=== PATIENT | female | born 1975 | race Caucasian/White ===

== ENCOUNTER 2022-09-06 01:00 | Outpatient (CLI) | payer MEDICARE, SELFPAY ==
--- NOTE | 2022-10-16 08:45 | MR_ITS ---
WS: [id number] MRI BRAIN WITH AND WITHOUT CONTRAST HISTORY: R53.1 - Weakness COMPARISON: None available. TECHNIQUE: Multiplanar imaging performed through the brain with MultiHance 20 ml's IV. No acute infarcts are seen. Burroughs-white matter differentiation is well preserved. Single round white m atter lesion in the RIGHT supraventricular white matter which may abut the corpus callosum. There is a central focus of hemosiderin. This lesion does not enhance. No cerebellar signal abnormality. No susceptibility artifacts or prior lacunar infarcts. Ventricles and extra-axial spaces are normal. Clivus and pituitary gland are normal. Visualized posterior fossa and brainstem are also normal. Postcontrast images are negative for masses or vascular malformations. Dural venous sinuses are normal. Paranasal sinuses: Well aerated with no significant disease. Mastoid air cells: Normal. Calvarium and scalp: No skull lesion. There is a scalp lesion which is mildly lobulated measuring 18 mm with mild enhancement. Probably representing a small epidermoid or sebaceous cyst.
[2022-10-16] MEDS: gadobenate dimeglumine 20 mL vial IV (09:37)
== END 2022-09-06 23:00 | disposition home or self-care (01) ==
LOC: RAD 09-24 20:20
PROVIDERS: Visit Provider Nurse Practitioner
DX: R53.1 Weakness (principal); R26.89 Other abnormalities of gait and mobility
CPT/HCPCS: 36415; 82550; 82607; 82746; 84443; 86334; 99204

== ENCOUNTER → 2022-09-06 10:01 | Outpatient (BNVA) | payer MEDICARE, SELFPAY | PROVIDERS: Visit Provider Nurse Practitioner | DX: R53.1 Weakness (principal); R26.89 Other abnormalities of gait and mobility; R20.2 Paresthesia of skin | CPT/HCPCS: 99204 ==

== ENCOUNTER 2022-10-16 08:50 | Outpatient (CLI) | payer MEDICARE, SELFPAY ==
--- NOTE | 2022-10-16 07:30 | MR_ITS ---
WS: [id number] MRI BRAIN WITH AND WITHOUT CONTRAST HISTORY: R53.1 - Weakness COMPARISON: None available. TECHNIQUE: Multiplanar imaging performed through the brain with MultiHance 20 ml's IV. No acute infarcts are seen. Burroughs-white matter differentiation is well preserved. Single round white m atter lesion in the RIGHT supraventricular white matter which may abut the corpus callosum. There is a central focus of hemosiderin. This lesion does not enhance. No cerebellar signal abnormality. No susceptibility artifacts or prior lacunar infarcts. Ventricles and extra-axial spaces are normal. Clivus and pituitary gland are normal. Visualized posterior fossa and brainstem are also normal. Postcontrast images are negative for masses or vascular malformations. Dural venous sinuses are normal. Paranasal sinuses: Well aerated with no significant disease. Mastoid air cells: Normal. Calvarium and scalp: No skull lesion. There is a scalp lesion which is mildly lobulated measuring 18 mm with mild enhancement. Probably representing a small epidermoid or sebaceous cyst. MR/MR head wo/w con [id number] IMPRESSION: 1. No enhancing masses. 2. Very nonspecific single white matter lesion in the RIGHT centrum semiovale measures 7.7 mm. Tiny central focus of hemosiderin. Differential includes a jimbo or lacunar infarct or area of demyelination. 3. No atrophy. 4. No enhancing masses. 5. Sebaceous or epidermoid cyst LEFT scalp.
--- NOTE | 2022-10-16 09:30 | MR_ITS ---
WS: [id number] MRI CERVICAL SPINE with and without contrast HISTORY: Dizziness and bilateral leg weakness. Falls. COMPARISON: None available. Technique: Multiplanar, multisequence noncontrast imaging of the cervical spine. MultiHance 20 mL IV. Normal cervical alignment with no compression fracture or significant disc space narrowing. Signal within the cervical cord is normal. Visualized posterior fossa is unremarkable. Craniocervical junction, C1 and C2 relationship, odontoid process and soft tissues are normal. No marrow edema or cord enhancement. No discitis or osteomyelitis. C2-C3: Normal. C3-C4: Normal. C4-C5: Normal. C5-C6: Minimal disc bulging. C6-C7: Normal. C7-T1: Normal. Paraspinal soft tissue are normal. MR/MR cervical spine wo/w [id number] IMPRESSION: 1. Quality of this examination is compromised by body habitus. 2. No signal abnormality within the cervical cord or enhancement. 3. No significant central or foraminal stenosis.
[2022-10-16] MEDS: gadobenate dimeglumine 20 mL vial IV (11:12)
== END 2022-10-16 08:51 | disposition home or self-care (01) ==
PROVIDERS: Visit Provider Nurse Practitioner
DX: G95.9 Disease of spinal cord, unspecified (principal); R26.89 Other abnormalities of gait and mobility; R26.9 Unspecified abnormalities of gait and mobility; R53.1 Weakness; L72.3 Sebaceous cyst
CPT/HCPCS: 70553; 72156; A9577